=== PATIENT | male | born 1970 | race Caucasian/White ===

== ENCOUNTER 2024-10-26 13:29 | Outpatient (CLI) | payer OTHER, SELFPAY ==
--- NOTE | 2024-10-26 13:39 | XR_ITS ---
WS: [id number] Exam: XR lumbar spine 2-3V* [id number] Date/Time of Exam: 10/26/2024 1:50 PM Reason For Exam: PAIN/ROM DIFFICULTY/LUPUS N SJOGRENS There is probably lumbarization of S1. No fracture noted. There is spondylosis. Moderate degenerative narrowing of the L2-3 disc. Posterior elements are intact. XR/XR lumbar spine 2-3V* [id number] IMPRESSION: 1. Degenerative changes as above. No fracture.
--- NOTE | 2024-10-26 13:39 | XR_ITS ---
WS: [id number] Exam: XR wrist RT 2V [id number] Date/Time of Exam: 10/26/2024 1:50 PM Reason For Exam: PAIN/ROM DIFFICULTY/LUPUS SJOGRENS No acute fracture. Mild degenerative change. There is some separation between the lunate and scaphoid which may represent carpal disassociation. Normal soft tissues. XR/XR wrist RT 2V [id number] IMPRESSION: 1. No fracture. 2. Degenerative changes. 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
--- NOTE | 2024-10-26 13:39 | XR_ITS ---
WS: [id number] Exam: XR hand RT 2V [id number] Date/Time of Exam: 10/26/2024 1:50 PM Reason For Exam: PAIN/ROM DIFFICULTY/LUPUS SJOGRENS No acute fracture. 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 Normal soft tissues. Impression minimal DJD in the DIP joints.
== END 2024-10-26 13:30 | disposition home or self-care (01) ==
LOC: RAD 13:33
PROVIDERS: PCP Family Medicine; Visit Provider Emergency Medicine
DX: Z02.71 Encounter for disability determination (principal); R93.7 Abnormal findings on diagnostic imaging of other parts of musculoskeletal system; M47.896 Other spondylosis, lumbar region; M51.369 Other intervertebral disc degeneration, lumbar region without mention of lumbar back pain or lower extremity pain; M19.041 Primary osteoarthritis, right hand; M19.031 Primary osteoarthritis, right wrist; R93.6 Abnormal findings on diagnostic imaging of limbs
CPT/HCPCS: 72100; 73100; 73120